=== PATIENT | male | born 1950 | race Caucasian/White ===

== ENCOUNTER 2022-08-13 13:09 | Emergency (ER) | payer MEDICARE, SELFPAY ==
[2022-08-13 13:11] VITALS: BP 115/85; PULSE 102; RESP 20; TEMP 36.9; O2SAT 98; BMI 20.6
--- NOTE | 2022-08-13 13:24 | RAD_ITS ---
EXAM: XR CHEST, 2 VIEWS CLINICAL INDICATION: SOB. TECHNIQUE: Frontal and lateral views of the chest. This report was created using [employer] report generation technology. COMPARISON: None. FINDINGS: LUNGS AND PLEURAL SPACES: Probable compressive atelectasis in the lateral half of the left lung. No pneumothorax. No effusion. Normal right lung and residual left upper lobe. HEART: Unremarkable. Cardiac silhouette not enlarged. MEDIASTINUM: Central airways and mediastinal contour are unremarkable. BONES/JOINTS: Unremarkable. SOFT TISSUES: Unremarkable. UPPER ABDOMEN: Air-fluid level in the bottom half of the left chest is most likely large gastric hernia. RAD/Chest PA and Lateral IMPRESSION: Probable large left gastric hernia and compressive atelectasis in the bottom half of the left lung. Electronically Signed: Yony Mccarty MD at 14:15 EST ,
--- NOTE | 2022-08-13 13:24 | EKG12_ITS ---
Test Reason : SOB Blood Pressure : / mmHG Vent. Rate : 099 BPM Atrial Rate : 099 BPM P-R Int : 150 ms QRS Dur : 090 ms QT Int : 326 ms P-R-T Axes : 062 057 065 degrees QTc Int : 418 ms Sinus rhythm with occasional Premature ventricular complexes Nonspecific ST and T wave abnormality Abnormal ECG Confirmed by PAULINE BERRY, STANISLAW ([id number]), newspaper editor ALFA HAGER ([id number]) on 08/15/2022 9:40:48 AM Referred By: LILY Confirmed By:STANISLAW CARPENTER MD
--- NOTE | 2022-08-13 13:26 | EX.ED.DYSGE1 ---
HPI History of Present Illness Chief Complaint: Shortness of Breath Informant: patient and family Onset/Context/Timing Onset: Weeks Context: Gradual Onset Narrative Narrative: Patient presents via EMS from urgent care secondary to shortness of breath. Patient reports having shortness of breath for several weeks. He has minimal cough. He denies chest pain. He has not noted fever or chills. Pulse ox was reportedly 71% at the urgent care. Patient was given a breathing treatment on arrival to the emergency room has a sat of 98% on room air. PFSH PFS Medical History COPD (chronic obstructive pulmonary disease) Home Medications NK 08/13/22 [History Last Taken Unknown] Allergy/AdvReac Type Severity Reaction Status Date / Time No Known Allergies Allergy Verified 08/13/22 13:10 Social History Smoking Status: Former smoker ROS ROS ED Constitutional Constitutional ED: Denies chills or fever(s) Eyes Eyes: Denies change in vision or discharge from eye(s) ENT ENT ED: Denies discharge from eye(s), rhinorrhea or sore throat Cardiovascular Cardiovascular: Denies chest pain or palpitations Respiratory/Chest Respiratory/Chest: Reports cough and dyspnea Gastrointestinal Gastrointestinal: Denies abdominal pain, diarrhea, nausea or vomiting Genitourinary Genitourinary ED: Denies dysuria Musculoskeletal Musculoskeletal: Denies back pain or extremity pain Integumentary Denies Abrasions or rash Neurologic Neurologic: Denies headache(s) or weakness Psychiatric Psychiatric: Denies anxiety or depression Endocrine Endocrinology: Denies polydipsia or polyuria Allergic/Immunologic Allergic/Immunologic ED: Denies lip swelling or urticaria EXAM Physical Exam Narrative Exam Narrative: Patient sitting upright in bed in no acute distress. Speaking full sentences. Const Vital Signs: 08/13/22 13:11 08/13/22 13:45 08/13/22 15:32 Temperature 98.5 F Temperature Source Oral Pulse Rate 102 H 97 81 Respiratory Rate 20 H 19 H 20 H Respiratory Pattern Normal Blood Pressure 115/85 H 106/68 Blood Pressure Mean 95 80 Pulse Ox 98 96 Oxygen Delivery Method Room Air Room Air Positive well nourished and well developed General Appearance ED: well developed and pallor HEENT HEENT Narrative: Old appearing ecchymosis noted to the mid forehead. Mild left periorbital ecchymosis. This does not appear to be acute. Eyes PERRL and EOMs intact bilaterally Neck no lymphadenopathy Chest Wall inspection of chest normal and palpation of chest normal Resp normal respiratory effort Resp Narrative: Mild expiratory wheezes. Cardio regular rate and regular rhythm GI non-tender Auscultation: normoactive bowel sounds Palpation: soft Extremity normal to inspection Neuro oriented x3 and no sensory deficits noted Sensorium / Orientation: alert Motor Exam: strength 5/5 throughout Psych mental status grossly normal Skin General Skin Exam: pallor MDM MDM MDM Narrative Medical decision making narrative: Patient was placed on classroom monitor. O2 sats are appropriate on room air. Lab work obtained along with chest x-ray. Patient was given a DuoNeb treatment for mild wheezing noted on initial exam. EKG obtained. Lab Data Attestation: I reviewed the patient's lab results. Labs: Laboratory Results - last 24 hr 08/13/22 08/13/22 13:48 13:48 WBC 10.7 RBC 3.43 L Hgb 8.2 L Hct 28.2 L MCV 82.2 MCH 23.9 L MCHC 29.1 L RDW Std Deviation 47.6 H RDW Coeff of Kelly 15.9 H Plt Count 600 H MPV 8.6 Immature Gran % (Auto) 0.600 Neut % (Auto) 82.2 H Lymph % (Auto) 9.4 L [place] % (Auto) 5.8 Eos % (Auto) 1.5 Baso % (Auto) 0.5 Absolute Neuts (auto) 8.8 H Absolute Lymphs (auto) 1.01 Nucleated RBC % 0 Sodium 139 Potassium 3.9 Chloride 105 Carbon Dioxide 25.0 Anion Gap 9 BUN 30 H Creatinine 1.22 Estim Creat Clear Calc 44.95 Est GFR (MDRD) Af Amer 75 Est GFR (MDRD) Non-Af 62 BUN/Creatinine Ratio 24.6 H Glucose 127 H Calcium 11.9 H Troponin I High Sens 10 Radiography Chest X-Ray - ED: 2 View, Read by ED Physician and Left Effusion Diagnostic Testing: Clinical Impression(s) from Imaging Studies Chest X-Ray 08/13/22 13:24 IMPRESSION: Probable large left gastric hernia and compressive atelectasis in the bottom half of the left lung. Electronically Signed: Yony Mccarty MD at 14:15 EST , Chest CT 08/13/22 14:16 IMPRESSION: 1. Moderate left pneumothorax and moderately large left pleural fluid. 2. At least 8.6 cm cavitary mass in the left lower lobe and additional hypodense masses in the left lower lobe and left hilar lymphadenopathy with central necrosis. 3. At least 3 nonenhancing cysts in the right hepatic lobe. Electronically Signed: Yony Mccarty MD at 15:14 EST , ADDENDUM: 08/13/22 1527 IMPRESSION: 1. Moderate left pneumothorax and moderately large left pleural fluid. 2. At least 8.6 cm cavitary mass in the left lower lobe and additional hypodense masses in the left lower lobe and left hilar lymphadenopathy with central necrosis. 3. At least 3 nonenhancing cysts in the right hepatic lobe. N.B. : Dyana Agee MD, confirmed on 08/13/2022 15:20:23 (ET) that the healthcare facility has received the radiology report. Electronically Signed: Yony Mccarty MD at 15:14 EST , EKG Initial EKG: Attestation: I personally reviewed and interpreted this EKG as follows: Interpretation: Sinus Rhythm (Sinus at 99 with nonspecific T wave flattening in the inferior leads as well as V6. No obvious ischemia.) Treatment and Re-Evaluation Narrative: CBC reveals normal white count. Hemoglobin is low at 8.2. I attempted to find prior records, however I do not have any old CBC studies available in either our system or in [facility]. Chemistry studies are largely unremarkable with normal renal function. Glucose is 127. Troponin is normal at 10. Two-view chest x-ray per my interpretation reveals a moderate left pleural effusion. Due to concern for possible underlying malignancy causing effusion and anemia he was sent for a CT scan of the chest. CT scan reveals a moderate left pneumothorax and moderately large left pleural effusion. There is an at least 8.6 cm cavitary mass in the left lower lobe with additional hypodense masses in the left lower lobe and left hilar lymphadenopathy. There are 3 nonenhancing cysts in the right hepatic lobe. Test results are discussed with patient and son at bedside. I spoke with surgery here who feels the patient needs to be transferred to a facility with CT surgery. He states with evidence of a necrotic mass and hemopneumothorax immediate surgery is often a treatment as opposed to placing a chest tube and getting cytology. At this time patient's O2 sat is 97% on room air. I did place him on 2 L nasal cannula for support. Discharge Plan Triage Chief Complaint: Shortness of Breath ED Provider: Dyana Agee Dx/Rx/DC Orders Prescriptions: No Action NK Primary Care Provider: Care Physician,No Primary Referrals: NOT,DEFINED [Non-Staff] -
[2022-08-13] MEDS: Ipratropium/Albuterol Sulfate 3 ML AMPUL.NEB INHALATION (13:36)
[2022-08-13] MEDS: MethylPREDNISolone 125 MG/2 ML Vial 100 MG IV (13:42)
[2022-08-13 13:45] VITALS: PULSE 97; RESP 19
[2022-08-13 14:00] LABS: Absolute Lymphocyte Count 1.01 X10^3/uL (0.83-4.51); Absolute Neutrophil Count 8.8 X10^3/uL (2.0-7.7); Basophil# 0.05 X10^3/uL; Basophil% 0.5 % (0-1); Eosinophil# 0.16 X10^3/uL; Eosinophils% 1.5 % (0-5); Hematocrit 28.2 % (40-54); Hemoglobin 8.2 g/dL (13.0-16.5); Lymphocyte # 1.01 X10^3/ul (0.83-4.51); Lymphocyte % 9.4 % (19-41); Mean Corp Hgb Conc 29.1 g/dL (32-36); Mean Corpuscular Hgb 23.9 pg (27.0-32.0); Mean Corpuscular Volume 82.2 fL (80-94); Mean Platelet Vol. 8.6 fl (6.2-12.0); Monocyte# 0.62 X10^3/uL; Monocyte% 5.8 % (0-10); NRBC Flagged by Analyzer 0 % (0-5); Neutrophil # 8.84 X10^3/uL (2.7-7.7); Neutrophil % 82.2 % (47-70); Platelet Count 600 K/mm3 (150-450); RBC Distribution Width CV 15.9 % (11.6-14.6); RBC Distribution Width SD 47.6 fl (35.1-43.9); Red Blood Count 3.43 M/mm3 (4.6-6.2); White Blood Count 10.7 K/mm3 (4.4-11.0)
[2022-08-13 14:11] LABS: Anion Gap 9 (5-15); BUN 30 mg/dL (7-18); BUN/Creat Ratio 24.6 RATIO (10-20); Calcium,Total 11.9 mg/dL (8.5-10.1); Chloride 105 mmol/L (98-107); Creatinine, Serum 1.22 mg/dL (0.70-1.30); EST Glomerular Filtration Rate 62 mL/min (>60); Est Glom Filt Rate - Afr Amer 75 mL/min (>60); Estimated Creatinine Clearance 44.95 ml/min; Glucose 127 mg/dL (74-106); Potassium 3.9 mmol/L (3.5-5.1); Sodium Level 139 mmol/L (136-145); Troponin-I HS 10 pg/mL (3.0-78.0)
--- NOTE | 2022-08-13 14:16 | CT_ITS ---
ACR Level 3 findings have been noted. An addendum which confirms receipt of the report will follow. EXAM: CT CHEST WITH INTRAVENOUS CONTRAST CLINICAL INDICATION: dyspnea, effusion vs mass TECHNIQUE: Helically acquired images were obtained of the chest with intravenous contrast. This CT exam was performed using one or more of the following dose reduction techniques: automated exposure control, adjustment of the mA and/or kV according to patient size, and/or use of iterative reconstruction technique. This report was created using [employer] report generation technology. CONTRAST: IV 75mL [id number]-370 RADIATION DOSE: CTDIvol = 8.28 mGy, DLP = 260.81 mGy-cm COMPARISON: None. FINDINGS: LUNGS AND PLEURAL SPACES: Moderate left anterior pneumothorax. Moderately large left posterior pleural fluid with partial atelectasis of left lobe. No mass. Normal right lung. HEART: Unremarkable. Heart size is normal. No pericardial effusion. No significant coronary artery calcifications. MEDIASTINUM: Large cavitary mass in the left lower lobe measuring at least 8.6 cm in diameter. There are additional hypodense masses in the left lower lobe and left hilar lymphadenopathy with necrosis. Esophagus is unremarkable. No hiatal hernia. THYROID: Unremarkable. No thyroid lesions. BONES/JOINTS: Unremarkable. No suspicious lytic or blastic abnormality. VASCULATURE: Unremarkable. Thoracic aorta is non-dilated. No thoracic aortic dissection. No obvious central pulmonary embolism although this study was not performed with the pulmonary embolism protocol. LIVER: At least 3 nonenhancing cysts in the right hepatic lobe. CT/Chest WITH Contrast IMPRESSION: 1. Moderate left pneumothorax and moderately large left pleural fluid. 2. At least 8.6 cm cavitary mass in the left lower lobe and additional hypodense masses in the left lower lobe and left hilar lymphadenopathy with central necrosis. 3. At least 3 nonenhancing cysts in the right hepatic lobe. Electronically Signed: Yony Mccarty MD at 15:14 EST ,
[2022-08-13 15:32] VITALS: BP 106/68; PULSE 81; RESP 20; O2SAT 96
[2022-08-13 16:20] VITALS: BP 128/66; PULSE 82; RESP 16; O2SAT 99
== END 2022-08-13 16:53 | disposition short-term general hospital (02) ==
PROVIDERS: Emergency Provider Emergency Medicine; Visit Provider Emergency Medicine
DX: R06.02 Shortness of breath (principal); Z87.891 Personal history of nicotine dependence
CPT/HCPCS: 71046; 71260; 80048; 84484; 85025; 87811; 93005; 94640; 96374; 99285; Q9967; A4216